=== PATIENT | female | born 2000 | race Caucasian/White ===

== ENCOUNTER 2024-07-05 16:55 | Emergency (ER) | payer BC, SELFPAY ==
[2024-07-05 17:12] VITALS: BP 150/79; PULSE 107; RESP 16; TEMP 36.6; O2SAT 99; BMI 27.1
--- NOTE | 2024-07-05 17:15 | ED_ITS ---
Discharge Plan Disposition Patient Disposition: Home, Self-Care Condition: Good Prescriptions Prescriptions: New methylprednisolone [Medrol (Renny)] 4 mg tablets,dose pack See Rx Instructions .Route .COMPLEX 6 Days Qty: 21 0RF Rx Instructions: taper pack; amoxicillin-pot clavulanate 875-125 mg Tablet 1 tab PO Q12H 7 Days Qty: 14 0RF Referrals Follow up/Referrals: Provider,Referral, MD [Primary Care Provider] - See instructions Activity Restrictions/Add. Instructions Additional Instructions/Restrictions: *Monitor Temp, Over the counter Motrin or Tylenol as directed/as needed Tylenol every 4 hours and Motrin every 6 hours (as long as your family doctor has told you that you can take it) for fever or pain. and straight to ER if unable to lower temp less than 101.0 after medication given *Warm salt water gargles may help to soothe the throat *Throat Lozenges? *Warm fluids like tea with honey may help to soothe the throat? *Sleep elevated *Humidifier/Vaporizer Take medication as prescribed Follow up IMMEDIATELY for new or worsening symptoms or no Noticeable improvement over the next 48-72 hours. 911 for difficulty breathing or swallowing Clinical Impressions Clinical Impression: Sinusitis Instructions Patient Instructions: DI for Sinusitis, Sinus Headache, Sinusitis Print Language Print Language: Icelandic Discharge ED Provider: Bettina Nick [facility] [place] HPI General Stated complaint: sore throat, SINCLAIR darci Mode of Arrival: Ambulatory Source of Information: Patient Limitations: No Limitations Time Seen by Provider: 07/05/24 17:15 Description of Symptoms (Recalled from Triage Doc. by RN): Patient reports sinus congestion, pressure in face and pain in her ears since Monday. HEENT Symptoms (Recalled from RN notes): Yes Resp Symptoms (Recalled from RN notes): No Skin Symptoms (Recalled from RN notes): No MS Symptoms (Recalled from RN notes): No Functional Status (Recalled from RN notes): wnl History of Present Illness Provider Complaint: Patient states that she thinks she may have a sinus infection States that she has been having sinus pain and pressure and pressure behind her eyes since Monday and now her mucous is greenish yellow so she came in to get something to help clear it up Related Data Previous Rx's ?Medication ?Instructions ?Recorded amoxicillin 875 mg-potassium 1 tab PO Q12H 7 days #14 tabs 07/05/24 clavulanate 125 mg tablet methylprednisolone 4 mg tablets in See Rx Instructions .Route 07/05/24 a dose pack (Medrol (Renny)) .COMPLEX 6 days #21 tabs Allergies Allergy/AdvReac Type Severity Reaction Status Date / Time No Known Allergies Allergy Verified 07/05/24 17:14 Worker's Comp Is this a Worker's Comp case?: No PFSH [facility] Disclaimer: The information contained in this section may have been updated after the patient was seen, as this information can be updated by other users. Social History Smoking Status: Unknown if ever smoked alcohol intake: never current occupational status: employed Travel in the last 8 weeks: None ROS Obtained: Yes All systems reviewed & no additional complaints except as documented and Yes Systems reviewed as appropriate & no additional complaints except as documented Constitutional Constitutional: Reports system reviewed and no additional complaints, except as documented, Reports as per HPI and Reports headache(s) ENT Ears, Nose, Mouth, and Throat: Reports system reviewed and no additional complaints, except as documented, Reports as per HPI, Reports headache(s), Reports sinus pain and Reports sinus pressure Cardiovascular Cardiovascular: Reports system reviewed and no additional complaints, except as documented and Reports as per HPI Respiratory Respiratory: Reports system reviewed and no additional complaints, except as documented and Reports as per HPI Gastrointestinal Gastrointestingal: Reports system reviewed and no additional complaints, except as documented and as per HPI Neurologic Neurologic: Reports headache(s) Physical Exam General General appearance: alert and in no apparent distress ENT ENT exam: Present mucous membranes moist Expanded ENT Exam Nose exam: Present sinus tenderness Throat exam: Present other (PND noted) Respiratory Respiratory exam: Present normal lung sounds bilaterally; Absent respiratory distress or wheezes Cardiovascular Cardiovascular exam: Present regular rate, normal rhythm and normal heart sounds Neurological Exam Neurological exam: Present alert, oriented X3 and normal gait Medical Decision Making Medical Records Screening: Per USPSTF and CDC recommendations, given the prevalence of disease in our region, it is our hospital?s policy to screen for HIV and viral Hepatitis for all patients aged 18 and over and those with ongoing risk factors. Cliff Inquiry Pt receiving controlled substance: No Cliff was queried for this patient: No Vital Signs: 07/05/24 17:12 Temperature 97.9 F Temperature Source Oral Pulse Rate [Radial] 107 H Respiratory Rate 16 Blood Pressure [Right Arm] 150/79 H Blood Pressure Mean [Right Arm] 102 Blood Pressure Source [Right Arm] Automatic Cuff Blood Pressure Position [Right Arm] Sitting 02 Sat by Pulse Oximetry 99 Oxygen Delivery Method Room Air
[2024-07-05 17:33] VITALS: BP 150/79; PULSE 107; RESP 16; TEMP 36.6; O2SAT 99
== END 2024-07-05 17:34 | disposition home or self-care (01) ==
PROVIDERS: Emergency Provider Nurse Practitioner
DX: J32.9 Chronic sinusitis, unspecified (principal); R51.9 Headache, unspecified; R09.81 Nasal congestion; J02.9 Acute pharyngitis, unspecified; H92.03 Otalgia, bilateral
CPT/HCPCS: 99212; G0381